=== PATIENT | male | born 1955 | race Caucasian/White ===

== ENCOUNTER 2017-07-11 08:14 | Emergency (ER) | payer OTHER ==
[2017-07-11] MEDS ORDERED: NA CHLORIDE 0.9% 1,000 ML ONE (09:11)
--- NOTE | 2017-07-11 09:18 | EKG ---
Test Date: 2017-07-11 Test Time: 09:06:19 Labor/Excavator: DIGNA MEASUREMENT RESULTS: Intervals: Rate: 119 TN: 158 QRSD: 72 QT: 316 QTc: 444 [place]: P: 87 TN: 158 QRS: 66 T: 77 INTERPRETIVE STATEMENTS: Sinus tachycardia Otherwise normal ECG Compared to ECG 05/04/2017 18:56:04 No significant changes Electronically Signed On 07-11-17 09:17:26 CDT by Herber Manriquez
[2017-07-11 09:40] LABS: Glucose Level 103 mg/dL (65-120); Lipase 24 U/L (22-51)
[2017-07-11 09:42] LABS: Bicarbonate 29 mEq/L (21-31); Sodium Level 131 mEq/L (135-145)
--- NOTE | 2017-07-11 09:43 | RAD REPORT ---
EXAM DESCRIPTION: CT - Stone Protocol - 07/11/2017 9:19 am CLINICAL HISTORY: Flank pain. Back pain. COMPARISON: 05/04/2017 TECHNIQUE: Axial images were obtained without oral or IV contrast. Lack of contrast limits solid org an and vascular assessment. The [id number]-[id number] spans the entirety of the system partially obscuring uppermost abdomen and lung bases. Coronal reformatted images were obtained and reviewed. All CT scans are performed using dose optimization technique as appropriate and may include automated exposure control or mA/KV adjustment according to patient size. FINDINGS: The lower lung ontiveros are clear. Small hiatal hernia. Imaged portions of the liver and spleen show no suspicious findings on non-contrast imaging.Fatty danial er infiltration again noted. The pancreas and adrenal glands are normal. No pathologic lymphadenopath y in the abdomen or pelvis. No urinary tract stones or obstructive uropathy. Incomplete distention of the urinary bladder limits assessment. No bowel obstruction, free air, free fluid or abscess. Normal appendix noted. No significant bony abnormality. Mild dextroscoliosis of the lumbar spine. IMPRESSION: No urinary tract stones or obstructive uropathy. Fatty liver.
[2017-07-11 09:46] LABS: ALT/SGPT 22 IU/L (10-60); AST/SGOT 43 IU/L (10-42); Alkaline Phosphatase 81 IU/L (42-121); BUN Blood Urea Nitrogen 35 mg/dL (6-20); Bilirubin Direct 0.4 mg/dL (0-0.2); Bilirubin Total 1.8 mg/dL (0.3-1.2); Protein, Total 8.1 g/dL (6.0-8.3)
[2017-07-11 09:49] LABS: CKMB Creatine Kinase MB 5.5 ng/ml (0.3-4.0)
[2017-07-11 09:50] LABS: Alcohol Serum/Plasma < 10 mg/dl
[2017-07-11 09:51] LABS: Potassium 2.8 mEq/L (3.6-5.0)
[2017-07-11 09:54] LABS: Absolute Lymphocytes (CBC) 0.5 K/uL (0.7-4.9); Absolute Monocytes 1.5 K/uL (0.1-1.3); Absolute Neutrophil 4.7 K/uL (1.8-8.0); Basophils % 0.2 % (0-1.3); Eosinophils % 0.2 % (0-4.4); Hematocrit 39.5 % (39.6-49.0); Lymphocytes % 7.4 % (15.3-44.8); MCH 36.4 pg (27.0-35.0); MPV 8.6 fL (7.6-11.3); Monocytes % 22.7 % (3.3-12.3); RBC Red Blood Cell Count 3.76 M/uL (4.33-5.43)
[2017-07-11] MEDS ORDERED: POTASSIUM CL SA 10 MEQ TAB PO ONE (10:28)
[2017-07-11] MEDS ORDERED: HYDROCODONE/APAP 7.5/325 MG TAB ONE (10:29)
[2017-07-11] MEDS ORDERED: NS KCL 40MEQ 40 MEQ/1,000 ML BAG IV ONE (11:00)
[2017-07-11 11:04] LABS: Anisocytosis 1+; Blood Morphology Comment NOTED (NOT SEEN); Macrocytosis 1+; Platelet Estimate DECR; Urine White Blood Cell Casts OK
--- NOTE | 2017-07-11 12:13 | EDPHYS ---
Physician Documentation [facility] Name: Rigo Saxena Age: 62 yrs Sex: Male : 1955 Arrival Date: 07/11/2017 Time: 08:15 Bed 15 Private MD: ED Physician Malcolm Alejandro HPI: 07/11 08:57 This 62 yrs old Male presents to ER via EMS with complaints of Back Pain. kb 08:57 The patient presents with pain that is acute, with no known mechanism of injury, and kb tenderness. The symptoms are located in the low back. Onset: The symptoms/episode began/occurred 2 week(s) ago. The pain does not radiate. Associated signs and symptoms: The patient has no apparent associated signs or symptoms. The problem was sustained without known cause. Modifying factors: The patient symptoms are alleviated by nothing, the patient symptoms are aggravated by any movement. Severity of symptoms: At their worst the symptoms were moderate, in the emergency department the symptoms are unchanged. The patient has not experienced similar symptoms in the past. Pt states he started having low back pain 2 weeks ago and he hasn't been able to walk well due to pain. States "I have a bunch of other problems too. I have kidney failure and cirrhosis. The doctors have told me I drink too much. I do drink quite a bit.". Historical: - Allergies: 08:19 No Known Allergies; jl7 - PMHx: 08:19 cholecysitis; Cirrhosis; jl7 - Immunization history:: Adult Immunizations not up to date. - Social history:: Smoking status: Patient/guardian denies using tobacco, but has a distant history of tobacco abuse, Patient uses alcohol, on a daily basis. "2 glasses of 7 \\T\\ 7 per day.". ROS: 08:55 Constitutional: Negative for fever, chills, and weight loss, ENT: Negative for injury, kb pain, and discharge, Neck: Negative for injury, pain, and swelling, Cardiovascular: Negative for chest pain, palpitations, and edema, Respiratory: Negative for shortness of breath, cough, wheezing, and pleuritic chest pain, : Negative for injury, bleeding, discharge, and swelling, MS/Extremity: Negative for injury and deformity, Skin: Negative for injury, rash, and discoloration, Neuro: Negative for headache, weakness, numbness, tingling, and seizure. 08:55 Abdomen/GI: Positive for abdominal distension. 08:55 Back: Positive for pain at rest, pain with movement, of the low back area. Exam: 08:55 Constitutional: This is a well developed, well nourished patient who is awake, alert, kb and in no acute distress. Head/Face: Normocephalic, atraumatic. Neck: Trachea midline, no thyromegaly or masses palpated, and no cervical lymphadenopathy. Supple, full range of motion without nuchal rigidity, or vertebral point tenderness. No Meningismus. Chest/axilla: Normal chest wall appearance and motion. Nontender with no deformity. No lesions are appreciated. Cardiovascular: Regular rate and rhythm with a normal S1 and S2. No gallops, murmurs, or rubs. Normal PMI, no JVD. No pulse deficits. Respiratory: Lungs have equal breath sounds bilaterally, clear to auscultation and percussion. No rales, rhonchi or wheezes noted. No increased work of breathing, no retractions or nasal flaring. Skin: Warm, dry with normal turgor. Normal color with no rashes, no lesions, and no evidence of cellulitis. MS/ Extremity: Pulses equal, no cyanosis. Neurovascular intact. Full, normal range of motion. Neuro: Awake and alert, GCS 15, oriented to person, place, time, and situation. Cranial nerves II-XII grossly intact. Motor strength 5/5 in all extremities. Sensory grossly intact. Cerebellar exam normal. Normal gait. 08:55 Abdomen/GI: Inspection: distension, that is mild, that is moderate, in the abdomen diffusely, Bowel sounds: normal, in all quadrants, Palpation: nontender, in all quadrants. 08:55 Back: pain, that is moderate, that is severe, of the low back area, ROM is painful, with all movement. Vital Signs: 08:19 BP 132 / 99; Pulse 125; Resp 18 S; Temp 99.9(O); Pulse Ox 98% on R/A; Weight 75.75 kg jl7 (R); Height 5 ft. 10 in. (177.80 cm) (R); Pain 10/10; 09:17 BP 145 / 99; Pulse 123; Resp 16 S; Pulse Ox 98% on R/A; jl7 10:59 BP 161 / 94; Pulse 109; Resp 18; Pulse Ox 100% on R/A; 5 12:00 BP 154 / 108; Pulse 119; Resp 18; Pulse Ox 98% on R/A; jl7 12:50 BP 140 / 92; Pulse 105; Resp 16 S; Pulse Ox 100% on R/A; jl7 14:00 BP 161 / 93; Pulse 101; Resp 16 S; Pulse Ox 98% on R/A; 7 08:19 Body Mass Index 23.96 (75.75 kg, 177.80 cm) 7 MDM: 08:25 Patient medically screened. kb 08:57 Data reviewed: vital signs, nurses notes. Data interpreted: Pulse oximetry: on room air kb is 98 %. Interpretation: normal. 11:05 Counseling: I had a detailed discussion with the patient and/or guardian regarding: the kb historical points, exam findings, and any diagnostic results supporting the discharge/admit diagnosis, lab results, radiology results, the need for outpatient follow up, a family practitioner, to return to the emergency department if symptoms worsen or persist or if there are any questions or concerns that arise at home. 14:28 ED course: Pt has caregiver that takes care of him at home. Will return for worsening kb symptoms. . 07/11 08:41 Order name: Basic Metabolic Panel; Complete Time: 09:53 kb 07/11 08:41 Order name: CBC with Diff; Complete Time: 11:05 kb 07/11 08:41 Order name: Hepatic Function; Complete Time: 09:53 kb 07/11 08:41 Order name: Lipase; Complete Time: 09:53 kb 07/11 08:41 Order name: AMMONIA; Complete Time: 09:45 kb 07/11 08:41 Order name: ETOH Level; Complete Time: 09:53 kb 07/11 08:46 Order name: Ckmb; Complete Time: 09:50 kb 07/11 08:46 Order name: Creatine Phosphokinase; Complete Time: 09:50 kb 07/11 08:46 Order name: Troponin (emerg Dept Use Only); Complete Time: 09:46 kb 07/11 08:46 Order name: CT Stone Protocol; Complete Time: 09:45 kb 07/11 09:57 Order name: CBC Smear Scan; Complete Time: 11:05 EDMS 07/11 08:41 Order name: IV Saline Lock; Complete Time: 09:11 kb 07/11 08:41 Order name: Labs collected and sent; Complete Time: 09:11 kb 07/11 08:46 Order name: EKG - Nurse/Tech; Complete Time: 09:10 kb 07/11 08:46 Order name: EKG; Complete Time: 08:47 kb Administered Medications: 09:23 Drug: NS 0.9% 1000 ml Route: IV; Rate: 1000 ml; Site: right antecubital; jl7 10:40 Drug: [place] (7.5 mg-325 mg) 1 tabs Route: PO; jl7 10:45 Drug: Potassium Chloride 40 mEq Route: PO; jl7 11:00 Drug: NS 0.9% with KCl 40 mEq/L 1000 ml Route: IV; Rate: calculated rate; Site: right jl7 antecubital; Disposition: 15:47 Co-signature as Attending Physician, Malcolm Alejandro MD I agree with the assessment and lamont plan of care. Disposition: 07/11/17 12:12 Discharged to Home. Impression: Low back pain, Hypokalemia. - Condition is Stable. - Discharge Instructions: Back Injury Prevention, Uwth-so-Lbyb, Back Pain, Adult, Vdgn-jz-Coda, Hypokalemia. - Prescriptions for Tramadol 50 mg Oral Tablet - take 1 tablet by ORAL route every 8 hours as needed; 12 tablet. - Medication Reconciliation Form, Thank You Letter, Antibiotic Education, Prescription Opioid Use form. - Follow up: Emergency Department; When: As needed; Reason: Worsening of condition. Follow up: Private Physician; When: 2 - 3 days; Reason: Recheck today's complaints, Continuance of care, Re-evaluation by your physician. Signatures: Dispatcher [employer] [facility] Crystal Burgess, YARN SPINNER-C YARN SPINNER-Malcolm Black MD MD cha Leal, Jahala, RN RN jl7 Corrections: (The following items were deleted from the chart) 09:16 08:41 Spine Lumbar Wo Con+CT.RAD.BRZ ordered. [facility] 14:28 08:57 Pt states he started having low back pain 2 weeks ago and he hasn't been able to kb walk due to pain. States "I have a bunch of other problems too. I have kidney failure and cirrhosis. The doctors have told me I drink too much. I do drink quite a bit.". kb
--- NOTE | 2017-07-11 12:13 | ER ---
Nurse's Notes [facility] Name: Rigo Saxena Age: 62 yrs Sex: Male : 1955 Arrival Date: 07/11/2017 Time: 08:15 Bed 15 Private MD: Diagnosis: Low back pain;Hypokalemia Presentation: 07/11 08:15 Presenting complaint: EMS states: Pt c/o back pain x 1 month. The public health program manager reported jl7 abdominal pain x 3 months, reports the doctor stated "the pt's gallbladder or kidney is pushing up against his spine.". Transition of care: patient was not received from another setting of care. Onset of symptoms was June 10, 2017. Care prior to arrival: None. 08:15 Method Of Arrival: EMS: [facility] jl 08:15 Acuity: KEERTHI 3 jl7 Historical: - Allergies: 08:19 No Known Allergies; jl7 - PMHx: 08:19 cholecysitis; Cirrhosis; jl7 - Immunization history:: Adult Immunizations not up to date. - Social history:: Smoking status: Patient/guardian denies using tobacco, but has a distant history of tobacco abuse, Patient uses alcohol, on a daily basis. "2 glasses of 7 \\T\\ 7 per day.". Screenin:20 Abuse screen: Denies threats or abuse. Denies injuries from another. Nutritional jl7 screening: No deficits noted. Tuberculosis screening: No symptoms or risk factors identified. Fall Risk No fall in past 12 months (0 pts). Secondary diagnosis (15 points) impaired mobility, IV access (20 points). Ambulatory Aid- None/Bed Rest/Nurse Assist (0 pts). Gait- Impaired (20 pts.). Mental Status- Overestimates/Forgets Limitations (15 pts.). Total Nieves Fall Scale indicates High Risk Score (45 or more points). Fall prevention measures have been instituted. Side Rails Up X 2 Placed Close to Nursing Station Frequent Obs/Assessments Occuring As available patient and family educated on Fall Prevention Program and Strategies. Assessment: 08:20 General: Appears in no apparent distress. uncomfortable, Behavior is cooperative. Pain: jl7 Complains of pain in low back area and mid back area Pain does not radiate. Pain currently is 10 out of 10 on a pain scale. Quality of pain is described as aching, Pain began 1 month ago Is continuous. Neuro: Level of Consciousness is awake, alert, obeys commands, Oriented to person, place, time, situation. Cardiovascular: Denies chest pain, Heart tones S1 S2 present. Respiratory: Airway is patent Respiratory effort is even, unlabored, Respiratory pattern is regular, symmetrical, Breath sounds are clear bilaterally. Denies shortness of breath. GI: Abdomen is round distended, Last BM was July 10, 2017. Bowel sounds present X 4 quads. Abd is non tender X 4 quads. : No signs and/or symptoms were reported regarding the genitourinary system. EENT: No signs and/or symptoms were reported regarding the EENT system. Derm: Skin is pink, warm \\T\\ dry. Musculoskeletal: Reports pain in low back area and mid back area. 09:17 Reassessment: Pt remains A\\T\\O x 4 with intermittent confusion. jl7 10:45 Reassessment: Caregiver at bedside requesting to talk to provider. Provider notified jl7 and at bedside. 11:00 Reassessment: Caregiver requesting to be notified once pt is ready for discharge. jl7 Shaila Fair [phone], medical power of salon leader. 12:40 Reassessment: Pt ready for discharge, caregiver Shaila did not answer phone, message jl7 left. 13:03 Reassessment: Caregiver answered the phone and stated "It'll be 40 minutes before I can jl7 be there.". Vital Signs: 08:19 BP 132 / 99; Pulse 125; Resp 18 S; Temp 99.9(O); Pulse Ox 98% on R/A; Weight 75.75 kg jl7 (R); Height 5 ft. 10 in. (177.80 cm) (R); Pain 10/10; 09:17 BP 145 / 99; Pulse 123; Resp 16 S; Pulse Ox 98% on R/A; jl7 10:59 BP 161 / 94; Pulse 109; Resp 18; Pulse Ox 100% on R/A; mh5 12:00 BP 154 / 108; Pulse 119; Resp 18; Pulse Ox 98% on R/A; jl7 12:50 BP 140 / 92; Pulse 105; Resp 16 S; Pulse Ox 100% on R/A; jl7 14:00 BP 161 / 93; Pulse 101; Resp 16 S; Pulse Ox 98% on R/A; jl7 08:19 Body Mass Index 23.96 (75.75 kg, 177.80 cm) jl7 ED Course: 08:15 Patient arrived in ED. jl7 08:18 Triage completed. jl7 08:22 Arm band placed on right wrist. jl7 08:23 Bed in low position. Side rails up X2. Warm blanket given. bus driver/monitor on. Pulse ox mh5 on. NIBP on. 08:24 Inserted saline lock: 20 gauge in right antecubital area, using aseptic technique. em Blood collected. 08:25 Crystal Burgess FNP-C is PHCP. kb 08:25 Malcolm Alejandro MD is Attending Physician. kb 08:30 Aroldo Vázquez RN is Primary Nurse. jl7 09:00 Initial lab(s) drawn, by ED staff, sent to lab. jl7 09:14 EKG done, by hvac residential service technician. reviewed by Crystal SHEARER. tc 09:16 CT completed. Patient tolerated procedure well. Patient moved to CT via stretcher. sj Patient moved back from CT. 09:19 CT Stone Protocol In Process Unspecified. EDMS 14:34 No provider procedures requiring assistance completed. IV discontinued, intact, jl7 bleeding controlled, No redness/swelling at site. Pressure dressing applied. Administered Medications: 09:23 Drug: NS 0.9% 1000 ml Route: IV; Rate: 1000 ml; Site: right antecubital; jl7 10:40 Drug: [place] (7.5 mg-325 mg) 1 tabs Route: PO; jl7 10:45 Drug: Potassium Chloride 40 mEq Route: PO; jl7 11:00 Drug: NS 0.9% with KCl 40 mEq/L 1000 ml Route: IV; Rate: calculated rate; Site: right jl7 antecubital; Outcome: 12:12 Discharge ordered by . kb 14:34 Discharged to home ambulatory. jl7 14:34 Condition: stable 14:34 Discharge instructions given to patient, family, Instructed on discharge instructions, follow up and referral plans. medication usage, Demonstrated understanding of instructions, follow-up care, medications, Prescriptions given X 1. 14:35 Patient left the ED. jl7 Signatures: Dispatcher [employer] EDMS Crystal Burgess FNP-C FNP-Rebecca See Edgar, POINTING MACHINE OPERATOR POINTING MACHINE OPERATOR em Katelyn Roblero, award machine operator EKG [facility] Aroldo Vázquez, RN RN jl7 Corrections: (The following items were deleted from the chart) 12:40 09:17 Reassessment: Pt remain A\\T\\O x 4 with intermittent confusion. jl7 jl7
[2017-07-11 14:42] VITALS: TEMP 99.9
[2017-07-11 14:48] VITALS: BP 161/93; O2SAT 98
== END 2017-07-11 14:35 | disposition home or self-care (01) ==
LOC: ER 08:14
DX: E87.6 Hypokalemia (principal); K74.60 Unspecified cirrhosis of liver
CPT/HCPCS: 36415; 74176; 76377; 80048; 80076; 80320; 82140; 82550; 82553; 83690; 84484; 85025; 93005; 99285; J7030

== ENCOUNTER 2017-08-01 07:21 | Inpatient (IN) | payer OTHER ==
[2017-08-01] MEDS ORDERED: NA CHLORIDE 0.9% 500 ML ONE (08:24)
[2017-08-01 08:48] LABS: Absolute Lymphocytes (CBC) 1.3 K/uL (0.7-4.9); Absolute Monocytes 1.2 K/uL (0.1-1.3); Basophils % 0.3 % (0-1.3); Eosinophils % 0.1 % (0-4.4); Hematocrit 38.8 % (39.6-49.0); Lymphocytes % 9.3 % (15.3-44.8); MCH 35.6 pg (27.0-35.0); MCV 100.3 fL (80-100); MPV 7.6 fL (7.6-11.3); Monocytes % 9.1 % (3.3-12.3); RBC Red Blood Cell Count 3.87 M/uL (4.33-5.43)
[2017-08-01 08:59] LABS: Bicarbonate 26 mEq/L (21-31); Glucose Level 152 mg/dL (65-120); Lipase 18 U/L (22-51); Potassium 3.3 mEq/L (3.6-5.0); Sodium Level 132 mEq/L (135-145)
[2017-08-01] MEDS ORDERED: FOLIC ACID 1 MG, MULTIVITAMINS INJ 10 ML, THIAMINE HCL 100 MG in NA CHLORIDE 0.9% 1,000 ML IV ONE (09:00)
[2017-08-01] MEDS ORDERED: FAMOTIDINE 20 MG/2 ML VIAL IV ONE (09:03)
[2017-08-01 09:05] LABS: ALT/SGPT 10 IU/L (10-60); AST/SGOT 26 IU/L (10-42); Albumin 3.3 g/dL (3.2-5.5); Alkaline Phosphatase 100 IU/L (42-121); BUN Blood Urea Nitrogen 13 mg/dL (6-20); Bilirubin Direct 0.6 mg/dL (0-0.2); Bilirubin Total 3.3 mg/dL (0.3-1.2)
[2017-08-01 09:09] LABS: Alcohol Serum/Plasma < 10 mg/dl
--- NOTE | 2017-08-01 09:52 | RAD REPORT ---
EXAM DESCRIPTION: CT - Abdomen Pelvis W Contrast - 08/01/2017 9:40 am CLINICAL HISTORY: Upper abdominal pain COMPARISON: CT study July 11, ultrasound May 05 TECHNIQUE: Biphasic, helical CT imaging of the abdomen and pelvis was performed following 100 ml non -ionic IV contrast. Oral contrast was given. All CT scans are performed using dose optimization technique as appropriate and may include automated exposure control or mA/KV adjustment according to patient size. FINDINGS: Minimal left pleural effusion seen with atelectasis. No pericardial thickening or effusion . The liver, spleen, and pancreas show no suspicious findings. Gallbladder is abnormal. Gallstones are suspected. Wall appears slightly thickened or edematous. No biliary tree dilatation. Patient has prev iously shown findings of cholecystitis. Correlation is needed with any acute gallbladder symptoms. Symmetric renal function is seen with no hydronephrosis or suspicious renal mass. No pyelonephritis o r acute renal parenchymal process. Urinary bladder is 2 contracted to allow all accurate assessment. Prostate gland and seminal vesicles within normal limits. No dilated bowel loops or bowel wall thickening. No free air, free fluid or inflammatory stranding. No hernia, mass or bulky lymphadenopathy. No adrenal abnormality. No suspicious bony findings. IMPRESSION: Gallstones are suspected and wall of gallbladder is slightly thickened and edematous. Bi liary tree is not dilated. Findings are concerning for early acute gallbladder disease. Patient has previously shown findings co nsistent with cholecystitis. Correlation is needed with clinical presentation. Minimal left pleural effusion with atelectasis. Remainder of the examination shows no significant finding.
[2017-08-01] MEDS ORDERED: ONDANSETRON 4 MG/2 ML VIAL IV PRN (13:22)
[2017-08-01] MEDS ORDERED: LORazepam 2 MG/ML VIAL IV PRN (13:28)
[2017-08-01 13:45] LABS: Urine Bacteria 20-50 /HPF (NONE SEEN); Urine Culture Reflex Order REFLEXED; Urine Mucus 2+ /HPF (NONE SEEN)
[2017-08-01 13:52] LABS: Protime INR 1.37
[2017-08-01] MEDS ORDERED: NA CHLORIDE 0.9% 1,000 ML IV SCH (14:00)
[2017-08-01] MEDS: CIPROFLOXACIN 400mg IV 400 MG/200 ML BAG IV SCH (14:00)
[2017-08-01 14:11] LABS: Urine Blood TRACE (NEG); Urine Glucose NEGATIVE (NEG); Urine Protein 1+ (NEG)
--- NOTE | 2017-08-01 14:13 | ER ---
Nurse's Notes [facility] Name: Rigo Saxena Age: 62 yrs Sex: Male : 1955 Arrival Date: 08/01/2017 Time: 07:27 Bed 15 Private MD: Diagnosis: Acute cholecystitis Presentation: 08/01 07:27 Presenting complaint: EMS states: called out for upper quad. pain, reports was told to em follow up and have gallbladder removed, reports N/V. EMS BP 155/108, HR 128, SPO2 96% RA. Transition of care: patient was not received from another setting of care. Onset of symptoms was August 01, 2017. Initial Sepsis Screen: Does the patient meet any 2 criteria? No. Patient's initial sepsis screen is negative. Does the patient have a suspected source of infection? No. Patient's initial sepsis screen is negative. 07:27 Method Of Arrival: EMS: [facility] em 07:30 Acuity: KEERTHI 3 iw 07:33 Care prior to arrival: None. em Triage Assessment: 07:33 General: Appears in no apparent distress. uncomfortable, Behavior is calm, cooperative, em appropriate for age. Pain: Complains of pain in abdomen. Historical: - Allergies: 07:31 No Known Allergies; em - Home Meds: 07:31 aspirin 81 mg Oral TbEC 1 tab once daily [Active]; "2 unknown antibiotics" [Active]; em cyanocobalamin (vitamin B-12) 1,000 mcg Oral TbER daily [Active]; magnesium oxide 400 mg Oral tab twice a day [Active]; pantoprazole 40 mg Oral TbEC 1 tab once daily [Active]; docusate sodium 100 mg Oral cap 1 cap 2 times per day [Active]; thiamine HCl (vitamin B1) 100 mg Oral tab daily [Active]; - PMHx: 07:31 ACL REPAIR; Acute encephalopathy; CAD; Cirrhosis; cholecysitis; ETOH WITHDRAWL; CVA; em kidney failure; rhabdomylosis; - Immunization history:: Adult Immunizations not up to date. - Social history:: Smoking status: Patient uses tobacco products, smokes one-half pack cigarettes per day. Screenin:34 Abuse screen: Denies threats or abuse. Nutritional screening: No deficits noted. em Tuberculosis screening: No symptoms or risk factors identified. Fall Risk Secondary diagnosis (15 points) impaired mobility, Ambulatory Aid- None/Bed Rest/Nurse Assist (0 pts). Gait- Impaired (20 pts.). Total Nieves Fall Scale indicates High Risk Score (45 or more points). Side Rails Up X 2 Placed Close to Nursing Station. Assessment: 07:42 General: Appears in no apparent distress. uncomfortable, Behavior is calm, cooperative, hj appropriate for age. Pain: Complains of pain in epigastric area and right upper quadrant Pain currently is 10 out of 10 on a pain scale. Neuro: Level of Consciousness is awake, alert, obeys commands, Oriented to person, place, time, situation, Appropriate for age. Cardiovascular: Capillary refill < 3 seconds Patient's skin is warm and dry. Rhythm is sinus tachycardia. Respiratory: Airway is patent Respiratory effort is even, unlabored, Respiratory pattern is regular, symmetrical. GI: Reports upper abdominal pain. : No signs and/or symptoms were reported regarding the genitourinary system. EENT: No signs and/or symptoms were reported regarding the EENT system. Derm: No signs and/or symptoms reported regarding the dermatologic system. Musculoskeletal: No signs and/or symptoms reported regarding the musculoskeletal system. 08:48 Reassessment: Patient and/or family updated on plan of care and expected duration. Pain hj level reassessed. Patient is alert, oriented x 3, equal unlabored respirations, skin warm/dry/pink. awaiting results and POC;. 12:00 Reassessment: instructed me to update pt on POC and need for transfer to another facility for GI d/t being a high risk surgery, attempt to transfer to [facility] per pt request. awaiting acceptance to facility at this time, pt updated, pt stated understanding. 15:25 Reassessment: Patient appears in no apparent distress at this time. pt updated on attempt to call report, nurse unavailable, awaiting a call back, pt stated understanding, will continue to monitor, awaiting a call back at this time Patient states symptoms have not improved. Vital Signs: 07:31 BP 146 / 91; Pulse 129; Resp 22; Temp 98.3(O); Pulse Ox 98% on R/A; Weight 74.84 kg; em Height 5 ft. 10 in. (177.80 cm); Pain 10/10; 08:58 BP 143 / 79; Pulse 120; Resp 18; Pulse Ox 95% on R/A; hj 12:03 BP 155 / 97; Pulse 126 MON; Resp 22 S; Pulse Ox 95% on R/A; sg 14:00 BP 131 / 94; Pulse 119 MON; Resp 20 S; Pulse Ox 96% on R/A; Pain 10/10; sg 15:21 BP 123 / 83; Pulse 117 MON; Resp 20 S; Pulse Ox 98% on R/A; Pain 10/10; sg 07:31 Body Mass Index 23.67 (74.84 kg, 177.80 cm) em Wilmer Coma Score: 12:03 Eye Response: spontaneous(4). Verbal Response: oriented(5). Motor Response: obeys sg commands(6). Total: 15. ED Course: 07:27 Patient arrived in ED. em 07:30 Triage completed. iw 07:33 Arm band placed on. em 07:34 Patient has correct armband on for positive identification. Placed in gown. Bed in low em position. Call light in reach. Side rails up X2. 07:34 No provider procedures requiring assistance completed. em 07:35 Chele Benjamin, DK is Primary Nurse. hj 07:54 Carlos Figueroa MD is Attending Physician. kdr 08:30 Initial lab(s) drawn, by ma, sent to lab. Inserted saline lock: 20 gauge in right hj antecubital area, using aseptic technique. Blood collected. 09:[address] via stretcher. vm2 09:40 CT completed. Patient moved back from CT. vm2 09:41 CT Abd/Pelvis - W/Contrast In Process Unspecified. EDMS 10:03 Primary Nurse role handed off by Chele Benjamin, DK sg 10:03 Yordan Mc, DK is Primary Nurse. sg 12:13 \\[id number] initiated transfer to [facility] with Sherry wire transfer clerk. eb 13:34 by ma, sent to lab. Inserted saline lock: 20 gauge in left antecubital area, using iw aseptic technique. Blood collected. 14:07 Rosi Caicedo MD is Hospitalizing Provider. kdr 16:00 Patient admitted, IV remains in place. intact, No redness/swelling at site. sg Administered Medications: 08:12 Drug: NS 0.9% 500 ml Route: IV; Rate: bolus; Site: right antecubital; hj 08:57 Drug: Banana Bag - (NS 0.9% 1000 ml, foLIC Acid 1 mg, Thiamine 100 mg, Multivitamin 1 hj amp) Route: IV; Rate: calculated rate; Site: right antecubital; 09:05 Drug: Pepcid 20 mg Route: IVP; Site: right antecubital; 09:06 Follow up: Response: No adverse reaction Outcome: 14:12 Decision to Hospitalize by Provider. kdr 16:00 Admitted to Tele accompanied by tech, via stretcher, room 218, with chart, Report sg called to Emeterio ROOT 16:00 Condition: stable 16:00 Instructed on the need for admit, safety practices, Demonstrated understanding of instructions, follow-up care. 16:17 Patient left the ED. sg Signatures: Dispatcher [employer] Yordan Glass, RN Carlos Rodríguez MD MD kdr Munoz, Edgar, MODEL TECHNICIAN MODEL TECHNICIAN Anna Sagastume RN RN Chele Benjamin RN RN Kathy Powell [facility] Marii Barrios
--- NOTE | 2017-08-01 14:13 | EDPHYS ---
Physician Documentation [facility] Name: Rigo Saxena Age: 62 yrs Sex: Male : 1955 Arrival Date: 08/01/2017 Time: : Bed 15 Private MD: ED Physician Carlos Figueroa HPI: 08/01 09:07 This 62 yrs old Male presents to ER via EMS with complaints of Abdominal Pain kdr \\T\\ weakness. 09:07 The patient presents with abdominal pain in the epigastric area, in the upper abdomen. kdr Onset: The symptoms/episode began/occurred at an unknown time. The symptoms do not radiate. Associated signs and symptoms: Pertinent positives: nausea, vomiting, and diarrhea, Pertinent negatives: constipation, dysuria, fever, palpitations, shortness of breath, testicular pain, vomiting, vomiting blood. The symptoms are described as achy, burning, crampy, intermittent, vague, waxing/waning. Modifying factors: The symptoms are alleviated by nothing, the symptoms are aggravated by touching the area. Severity of pain: At its worst the pain was mild moderate just prior to arrival, in the emergency department the pain is unchanged. The patient has experienced similar episodes in the past, a few times. The patient has not recently seen a physician, The patient was here several weeks ago for weakness (unable to walk) and abdominal pain. Historical: - Allergies: : No Known Allergies; em - Home Meds: aspirin 81 mg Oral TbEC 1 tab once daily [Active]; "2 unknown antibiotics" [Active]; em cyanocobalamin (vitamin B-12) 1,000 mcg Oral TbER daily [Active]; magnesium oxide 400 mg Oral tab twice a day [Active]; pantoprazole 40 mg Oral TbEC 1 tab once daily [Active]; docusate sodium 100 mg Oral cap 1 cap 2 times per day [Active]; thiamine HCl (vitamin B1) 100 mg Oral tab daily [Active]; - PMHx: : ACL REPAIR; Acute encephalopathy; CAD; Cirrhosis; cholecysitis; ETOH WITHDRAWL; CVA; em kidney failure; rhabdomylosis; - Immunization history:: Adult Immunizations not up to date. - Social history:: Smoking status: Patient uses tobacco products, smokes one-half pack cigarettes per day. ROS: 09:07 Constitutional: Negative for fever, chills, and weight loss - generalized weakness kdr Eyes: Negative for injury, pain, redness, and discharge, ENT: Negative for injury, pain, and discharge, Neck: Negative for injury, pain, and swelling, Cardiovascular: Negative for chest pain, palpitations, and edema, Respiratory: Negative for shortness of breath, cough, wheezing, and pleuritic chest pain, Back: Negative for injury and pain, : Negative for injury, bleeding, discharge, and swelling, MS/Extremity: Negative for injury and deformity, Skin: Negative for injury, rash, and discoloration, Neuro: Negative for headache, weakness, numbness, tingling, and seizure activity. Psych: Negative for depression, anxiety, suicide ideation, homicidal ideation, and hallucinations, Allergy/Immunology: Negative for hives, rash, and allergies, Endocrine: Negative for neck swelling, polydipsia, polyuria, polyphagia, and marked weight changes, Hematologic/Lymphatic: Negative for swollen nodes, abnormal bleeding, and unusual bruising. 09:07 Abdomen/GI: Positive for abdominal pain, nausea, vomiting, and diarrhea, abdominal distension, Negative for rectal bleeding, bowel incontinence. Exam: 09:07 Constitutional: This is a well developed, well nourished patient who is awake, alert, kdr and in no acute distress. Head/Face: Normocephalic, atraumatic. Eyes: Pupils equal round and reactive to light, extra-ocular motions intact. Lids and lashes normal. Conjunctiva and sclera are non-icteric and not injected. Cornea within normal limits. Periorbital areas with no swelling, redness, or edema. Neck: Trachea midline, no thyromegaly or masses palpated, and no cervical lymphadenopathy. Supple, full range of motion without nuchal rigidity, or vertebral point tenderness. No Meningismus. Chest/axilla: Normal chest wall appearance and motion. Nontender with no deformity. No lesions are appreciated. Cardiovascular: Regular rate and rhythm with a normal S1 and S2. No gallops, murmurs, or rubs. Normal PMI, no JVD. No pulse deficits. Respiratory: Lungs have equal breath sounds bilaterally, clear to auscultation and percussion. No rales, rhonchi or wheezes noted. No increased work of breathing, no retractions or nasal flaring. Back: No spinal tenderness. No costovertebral tenderness. Full range of motion. Skin: Warm, dry with normal turgor. Normal color with no rashes, no lesions, and no evidence of cellulitis. MS/ Extremity: Pulses equal, no cyanosis. Neurovascular intact. Full, normal range of motion. Neuro: Awake and alert, GCS 15, oriented to person, place, time, and situation. Cranial nerves II-XII grossly intact. Motor strength 5/5 in all extremities. Sensory grossly intact. Cerebellar exam normal. Normal gait. Psych: Awake, alert, with orientation to person, place and time. Behavior, mood, and affect are within normal limits. 09:07 Abdomen/GI: Inspection: abdomen appears normal, Bowel sounds: active, all quadrants, Palpation: soft, mild abdominal tenderness, in the epigastric area. Vital Signs: 07:31 BP 146 / 91; Pulse 129; Resp 22; Temp 98.3(O); Pulse Ox 98% on R/A; Weight 74.84 kg; em Height 5 ft. 10 in. (177.80 cm); Pain 10/10; 08:58 BP 143 / 79; Pulse 120; Resp 18; Pulse Ox 95% on R/A; hj 12:03 BP 155 / 97; Pulse 126 MON; Resp 22 S; Pulse Ox 95% on R/A; sg 14:00 BP 131 / 94; Pulse 119 MON; Resp 20 S; Pulse Ox 96% on R/A; Pain 10/10; sg 15:21 BP 123 / 83; Pulse 117 MON; Resp 20 S; Pulse Ox 98% on R/A; Pain 10/10; sg 07:31 Body Mass Index 23.67 (74.84 kg, 177.80 cm) em Lyndsay Coma Score: 12:03 Eye Response: spontaneous(4). Verbal Response: oriented(5). Motor Response: obeys sg commands(6). Total: 15. MDM: 09:07 Data reviewed: vital signs, nurses notes, lab test result(s), radiologic studies. kdr Counseling: I had a detailed discussion with the patient and/or guardian regarding: the historical points, exam findings, and any diagnostic results supporting the discharge/admit diagnosis, lab results, radiology results. 14:12 Patient medically screened. kdr 08/01 08:12 Order name: Basic Metabolic Panel; Complete Time: 09:56 kdr 08/01 08:12 Order name: CBC with Diff; Complete Time: 09:07 [facility] 08/01 08:12 Order name: Creatinine for Radiology; Complete Time: 10:28 [facility] 08/01 08:12 Order name: Hepatic Function; Complete Time: 09:56 [facility] 08/01 08:12 Order name: Lipase; Complete Time: 09:56 [facility] 08/01 08:12 Order name: Urine Microscopic Only [facility] 08/01 08:12 Order name: ETOH Level; Complete Time: 09:56 [facility] 08/01 10:30 Order name: AMMONIA [facility] 08/01 12:50 Order name: PT-INR [facility] 08/01 12:50 Order name: Protime (+INR) [facility] 08/01 13:28 Order name: Urinalysis [facility] 08/01 13:46 Order name: Urine Culture [facility] 08/01 13:52 Order name: Urine Dipstick--Ancillary (enter results) 08/01 14:11 Order name: Urine Dipstick-Ancillary [facility] 08/01 08:12 Order name: IV Saline Lock; Complete Time: 08:35 [facility] 08/01 08:12 Order name: Labs collected and sent; Complete Time: 08:35 [facility] 08/01 08:12 Order name: CT Abd/Pelvis - W/Contrast; Complete Time: 09:56 [facility] 08/01 13:28 Order name: CONS Physician Consult [facility] 08/01 13:28 Order name: NPO [facility] Administered Medications: 08:12 Drug: NS 0.9% 500 ml Route: IV; Rate: bolus; Site: right antecubital; 08:57 Drug: Banana Bag - (NS 0.9% 1000 ml, foLIC Acid 1 mg, Thiamine 100 mg, Multivitamin 1 hj amp) Route: IV; Rate: calculated rate; Site: right antecubital; 09:05 Drug: Pepcid 20 mg Route: IVP; Site: right antecubital; 09:06 Follow up: Response: No adverse reaction Disposition: 08/01/17 14:12 Hospitalization ordered by Rosi Caicedo for Inpatient Admission. Preliminary diagnosis is Acute cholecystitis. - Bed requested for Telemetry/MedSurg (Inpatient). - Status is Inpatient Admission. sg - Condition is Fair. - Problem is new. - Symptoms have improved. UTI on Admission? No Signatures: Dispatcher [employer] Cleo John, RN RN Yordan Billings RN RN Carlos Parker MD MD kdr Munoz, Edgar, YOSI MCCLAINN Chele العراقي RN RN hj
[2017-08-01] MEDS: METRONIDAZOLE 500mg IVPB 500 MG/100 ML BAG IV SCH (16:45)
[2017-08-01] MEDS: chlordiazePOXIDE HCl 25 MG CAP PO SCH ×2 (17:13→23:37)
--- NOTE | 2017-08-01 17:35 | P.HP ---
Certification for Inpatient Patient admitted to: Inpatient With expected LOS: >2 Midnights Patient will require the following post-hospital care: None Practitioner: I am a practitioner with admitting privileges, knowledge of patient current condition, hospital course, and medical plan of care. Services: Services provided to patient in accordance with Admission requirements found in Title 42 Section 412.3 of the Code of Federal Regulations Patient History Date of Service: 08/01/17 Primary Care Provider: None Reason for admission: Abd Pain Allergies No Known Allergies Allergy (Unverified 04/24/17 14:27) Home Medications: Cyanocobalamin [Vitamin B-12*] 1,000 mcg PO DAILY #90 tab 04/30/17 Docusate [Colace Cap*] 100 mg PO BID #60 cap 04/30/17 Pantoprazole [Protonix Tab*] 40 mg PO DAILYAC #30 tab 04/30/17 Thiamine HCl [Vitamin B-1*] 100 mg PO DAILY #90 tablet 04/30/17 Aspirin [Aspirin EC 81 MG] 81 mg PO DAILY #90 tablet. 05/07/17 Magnesium Oxide [Mag 0X*] 400 mg PO BID #60 tab 05/07/17 - Past Medical/Surgical History Has patient received pneumonia vaccine in the past: No Diabetic: No -: ETOH abuse -: Rhabdomylosis -: acl to left knee 30yrs ago -: knee replacement - Family History Mother Notes: from blood clot in brain - Social History Smoking Status: Former smoker Alcohol use: Yes CD- Drugs: No Caffeine use: No Place of Residence: Home Review of Systems General: As per HPI Physical Examination - Vital Signs Temperature: 98.3 F Blood Pressure: 123/83 Pulse: 117 Respirations: 20 - Physical Exam General: Alert, In no apparent distress, Oriented x2, Confused HEENT: Atraumatic, Scleral icterus Neck: Supple Respiratory: Normal air movement, Crackles/rales Cardiovascular: Regular rate/rhythm, Normal S1 S2 Gastrointestinal: Normal bowel sounds, Soft and benign, Distended, Ascites, Tenderness (In the epigastric Area) Musculoskeletal: No tenderness Integumentary: No rashes Neurological: Normal speech, Normal strength at 5/5 x4 extr, Normal tone Lymphatics: No axilla or inguinal lymphadenopathy - Studies Laboratory Data (last 24 hrs) 08/01/17 13:25: PT 16.2 H, INR 1.37 08/01/17 08:30: Creatinine 0.97 08/01/17 08:30: WBC 13.6 H, Hgb 13.8, Hct 38.8 L, Plt Count 223 08/01/17 08:30: Sodium 132 L, Potassium 3.3 L, BUN 13, Creatinine 0.91, Glucose 152 H, Total Bilirubin 3.3 H, AST 26, ALT 10, Alkaline Phosphatase 100, Lipase 18 L Assessment and Plan - Problems (Diagnosis) (1) Cholecystitis Onset Date: 05/05/17 Current Visit: No Status: Acute Plan: Acute Cholecysititis on the Abd CT -General Surgery Consulted. Appreciate reccs. -IV fluids, NPO and IV cipro and flagyl -Surgery planned for blanche -Pt is high risk for surgery given his Liver cirrhosis and elevated Tbili. -Pt educated extensively about the risk and benefits. (2) Liver cirrhosis Current Visit: Yes Status: Acute Plan: Alcohol Liver Cirrhosis. Noncompliant with medication and alcohol abuse -CIWA protocol Qualifiers: Hepatic cirrhosis type: alcoholic cirrhosis Ascites presence: with ascites Qualified Code(s): K70.31 - Alcoholic cirrhosis of liver with ascites (3) Alcohol abuse Onset Date: 04/25/17 Current Visit: No Status: Chronic Plan: Alcohol abuse. Pt drinks 2 to 3 packs of 12 beer a day -Last drink last night. -CIWA protocol (4) Malnutrition Current Visit: No Status: Acute Qualifiers: Malnutrition type: protein-calorie malnutrition Protein-calorie malnutrition severity: moderate Qualified Code(s): E44.0 - Moderate protein- calorie malnutrition Discharge Plan: Home Plan to discharge in: 24 Hours - Advance Directives Does patient have a Living Will: No Does patient have a Durable POA for Healthcare: No - Code Status/Comfort Care Code Status Assessed: Yes Critical Care: No
[2017-08-01] MEDS: Morphine 2 MG/2 ML SYR IV PRN (18:52)
[2017-08-01] MEDS: KCL 20 MEQ/100 mL IVPB 20 MEQ/100 ML BAG IV SCH ×2 (20:08→22:08)
[2017-08-01] MEDS: DOCUSATE NA 100 MG CAP PO SCH (20:17)
[2017-08-02] MEDS: METRONIDAZOLE 500mg IVPB 500 MG/100 ML BAG IV SCH ×3 (00:25→16:26)
[2017-08-02] MEDS: Morphine 2 MG/2 ML SYR IV PRN ×5 (00:27→23:24)
[2017-08-02] MEDS: chlordiazePOXIDE HCl 25 MG CAP PO SCH ×4 (05:21→23:19)
[2017-08-02] MEDS: CIPROFLOXACIN 400mg IV 400 MG/200 ML BAG IV SCH ×2 (05:22→17:11)
[2017-08-02 06:19] LABS: Absolute Lymphocytes (CBC) 1.1 K/uL (0.7-4.9); Absolute Monocytes 0.9 K/uL (0.1-1.3); Absolute Neutrophil 7.4 K/uL (1.8-8.0); Basophils % 0.5 % (0-1.3); Eosinophils % 0.5 % (0-4.4); Hematocrit 33.7 % (39.6-49.0); Lymphocytes % 11.6 % (15.3-44.8); MCH 35.8 pg (27.0-35.0); MCV 101.5 fL (80-100); MPV 8.2 fL (7.6-11.3); Monocytes % 9.3 % (3.3-12.3); RBC Red Blood Cell Count 3.32 M/uL (4.33-5.43)
[2017-08-02 06:43] LABS: Albumin 2.9 g/dL (3.2-5.5); Bilirubin Total 2.3 mg/dL (0.3-1.2); Potassium 3.4 mEq/L (3.6-5.0); Protein, Total 6.8 g/dL (6.0-8.3)
[2017-08-02] MEDS: CYANOCOBALAMIN 1,000 MCG TAB PO SCH (08:20)
[2017-08-02] MEDS: DOCUSATE NA 100 MG CAP PO SCH ×2 (08:20→20:03)
[2017-08-02] MEDS: ASPIRIN EC 81 MG TAB PO SCH (08:20)
[2017-08-02] MEDS: KCL 20 MEQ/100 mL IVPB 20 MEQ/100 ML BAG IV SCH ×4 (08:24→23:19)
[2017-08-02] MEDS: PANTOPRAZOLE 40 MG INJ IVP SCH (08:25)
[2017-08-02] MEDS: SODIUM CHLORIDE 0.9% 10ML INJ IV SCH (08:25)
[2017-08-02] MEDS: FOLIC ACID 1 MG, MULTIVITAMINS INJ 10 ML, THIAMINE HCL 100 MG in NA CHLORIDE 0.9% 1,000 ML IV SCH (08:51)
--- NOTE | 2017-08-02 11:54 | P.PN ---
Subjective Date of Service: 08/02/17 Primary Care Provider: None Chief Complaint: Abd Pain Pt seen and examined at bedside with RN. Chart reviewed. Case D/W surgery. Plan is for Surgery blanche. Currently monitoring closely for DT's. Pt is AAOx1. But intermittent confusion. Review of Systems 10-point ROS is otherwise unremarkable Physical Examination - Vital Signs Temperature: 99.3 F Blood Pressure: 157/88 Pulse: 115 Respirations: 16 Pulse Ox (%): 93 - Physical Exam General: Alert, In no apparent distress, Oriented x1, Confused (Intermittent) HEENT: Atraumatic Neck: Supple Respiratory: Clear to auscultation bilaterally, Normal air movement Cardiovascular: Regular rate/rhythm, Normal S1 S2 Gastrointestinal: Normal bowel sounds, Soft and benign, Distended, Ascites, Tenderness (RUQ pain) Musculoskeletal: No tenderness Integumentary: No rashes Neurological: Normal speech, Normal tone, Normal affect Lymphatics: No axilla or inguinal lymphadenopathy - Studies Laboratory Data (last 24 hrs) 08/01/17 13:25: PT 16.2 H, INR 1.37 Medications List Reviewed: Yes Assessment & Plan - Problems (Diagnosis) (1) Cholecystitis Onset Date: 05/05/17 Current Visit: No Status: Acute Plan: Acute Cholecysititis on the Abd CT -General Surgery Consulted. Appreciate reccs. -IV fluids, NPO and IV cipro and flagyl -Surgery planned for blanche AM -Pt is high risk for surgery given his Liver cirrhosis and elevated Tbili. Spoke with POA. In agreement for surgery due to repeated symptoms. -Pt educated extensively as well about the risk and benefits. (2) Liver cirrhosis Current Visit: Yes Status: Acute Plan: Alcohol Liver Cirrhosis. Noncompliant with medication and alcohol abuse -CIWA protocol Qualifiers: Hepatic cirrhosis type: alcoholic cirrhosis Ascites presence: with ascites Qualified Code(s): K70.31 - Alcoholic cirrhosis of liver with ascites (3) Alcohol abuse Onset Date: 04/25/17 Current Visit: No Status: Chronic Plan: Alcohol abuse. Pt drinks 2 to 3 packs of 12 beer a day -Last drink last night. -CIWA protocol (4) Malnutrition Current Visit: No Status: Acute Qualifiers: Malnutrition type: protein-calorie malnutrition Protein-calorie malnutrition severity: moderate Qualified Code(s): E44.0 - Moderate protein- calorie malnutrition (5) UTI (urinary tract infection) Current Visit: Yes Status: Acute Plan: UA with UTI -Urine culture + for Gram - rods -IV cipro and flagyl on board Qualifiers: Urinary tract infection type: acute cystitis Hematuria presence: without hematuria Qualified Code(s): N30.00 - Acute cystitis without hematuria Discharge Plan: Other Plan to discharge in: 48 Hours - Code Status/Comfort Care Code Status Assessed: Yes Critical Care: No
--- NOTE | 2017-08-02 16:28 | CON ---
Date of Consultation: 08/01/2017 Reason: Chronic cholecystitis and cholelithiasis. History Of Present Illness: The patient is a 62-year-old gentleman, who has significant history of a lcohol abuse as well as cirrhosis and ascites, and he had been admitted in the end of April with si milar issues. At that time, we did not have a power of deputy commonwealth's attorney and he was unable to make informed c onsent and he improved on medical management. Therefore, he was discharged as such to follow up as a n outpatient with his [id number], he never did and he returns to the ER with biliary colic, up per abdominal pain going to the back, associated with occasional nausea and vomiting. No diarrhea or constipation. No blood in the stool. No sore throat, runny nose, cough, headaches, or dizziness. No chest pain. Review of Systems: Otherwise unremarkable. Past Medical History: Significant for alcohol abuse, history of DTs in the past, and rhabdomyolysis. Past Surgical History: Significant for knee replacement. Allergies: NONE. Social History: He used to smoke. He is active drinker of alcohol, he states the last drink was 4 o r 5 days ago. Physical Examination: Vital Signs: Stable. His heart rate is 115, temperature is 99.3, and blood pressure is 157/88. General: He is awake, however, is confused. Head and Neck: He has icterus. Cranial nerves 2 through 12 are grossly within normal limits. No ne ck masses. No JVD. Throat clear. Neck supple. Chest: Clear. Heart: S1 and S2. Abdomen: Soft. Positive tenderness in the epigastric and right upper quadrant area. No rebound. T he patient is voluntarily guarding, so it is hard to get a good exam. Extremities: Adequately perfused. Nontender. Neuro: Nonfocal. Laboratory Data: His white count is 9.5, there is a left shift. Platelets are 142. H and H are 11. 9 and 33.7. INR is 1.37. His chemistry is reviewed. His bilirubin on admission was 3.3, direct is 0.6. His AST, ALT, alkaline phosphatase, ammonia level are within normal limits. Lipase is within n ormal limit. His CT report and ultrasound done previously as well as an MRCP were all reviewed with the radiologist. He has essentially chronic cholecystitis and cholelithiasis and this sludge and sma ll stones, wall is slightly thickened and edematous. Assessment: Chronic cholecystitis and cholelithiasis, history of alcohol abuse, cirrhosis, delirium tremens. Recommendations: We will admit the patient. IV fluids, IV antibiotics. Monitor him another 24 hour for DTs to make sure he does not go into DTs, and if he remains clinically similar to what he has in the last 24 hours, we will proceed with a laparoscopic cholecystectomy, possible open. The risks, b enefits and alternatives were discussed with the [id number]. She understands and agrees to th e procedure. The patient vaguely understands what is happening that he was present in the room when I discussed the case with the power of deputy commonwealth's attorney, and plan of care was discussed with Dr. Caicedo. OLENA/ALEXANDER Voice ID: [id number] Report ID: [id number]
[2017-08-03] MEDS: METRONIDAZOLE 500mg IVPB 500 MG/100 ML BAG IV SCH ×3 (00:28→17:40)
[2017-08-03] MEDS: CIPROFLOXACIN 400mg IV 400 MG/200 ML BAG IV SCH (05:05)
[2017-08-03] MEDS: chlordiazePOXIDE HCl 25 MG CAP PO SCH ×4 (05:05→23:59)
[2017-08-03] MEDS: Morphine 2 MG/2 ML SYR IV PRN ×3 (06:14→21:35)
[2017-08-03 06:49] LABS: Absolute Monocytes 0.9 K/uL (0.1-1.3); Absolute Neutrophil 8.1 K/uL (1.8-8.0); Basophils % 0.2 % (0-1.3); Eosinophils % 0.8 % (0-4.4); Hematocrit 31.7 % (39.6-49.0); Lymphocytes % 10.2 % (15.3-44.8); MCH 35.6 pg (27.0-35.0); MCV 102.3 fL (80-100); MPV 7.8 fL (7.6-11.3); Monocytes % 9.3 % (3.3-12.3)
[2017-08-03 07:01] LABS: ALT/SGPT 10 IU/L (10-60); AST/SGOT 19 IU/L (10-42); Albumin 2.6 g/dL (3.2-5.5); Alkaline Phosphatase 70 IU/L (42-121); Amylase Level 26 U/L (28-100); BUN Blood Urea Nitrogen 11 mg/dL (6-20); Bicarbonate 23 mEq/L (21-31); Bilirubin Direct 0.5 mg/dL (0-0.2); Glucose Level 98 mg/dL (65-120); Lipase 14 U/L (22-51); Phosphorus 2.4 mg/dL (2.5-4.3); Potassium 3.5 mEq/L (3.6-5.0); Protein, Total 6.3 g/dL (6.0-8.3); Sodium Level 134 mEq/L (135-145)
[2017-08-03 07:09] LABS: Magnesium 0.7 mg/dL (1.8-2.5)
[2017-08-03] MEDS ORDERED: POTASSIUM PHOS IN 0.9 % NACL 15 MMOL/250 ML BAG IV ONE (08:00)
[2017-08-03] MEDS: FOLIC ACID 1 MG, MULTIVITAMINS INJ 10 ML, THIAMINE HCL 100 MG in NA CHLORIDE 0.9% 1,000 ML IV SCH (08:07)
[2017-08-03] MEDS: DOCUSATE NA 100 MG CAP PO SCH ×2 (08:08→21:00)
[2017-08-03] MEDS: CYANOCOBALAMIN 1,000 MCG TAB PO SCH (08:08)
[2017-08-03] MEDS: ASPIRIN EC 81 MG TAB PO SCH (08:08)
[2017-08-03] MEDS: PANTOPRAZOLE 40 MG INJ IVP SCH (08:09)
[2017-08-03] MEDS: SODIUM CHLORIDE 0.9% 10ML INJ IV SCH (08:18)
[2017-08-03] MEDS ORDERED: MAGNESIUM 50% 3 GM in NA CHLORIDE 0.9% 100 ML IV ONE (08:30)
[2017-08-03] MEDS: NA CHLORIDE 0.9% 1,000 ML IV SCH (09:00)
--- NOTE | 2017-08-03 09:34 | P.PN ---
Subjective Date of Service: 08/03/17 Primary Care Provider: None Chief Complaint: Abd Pain Pt seen and examined at bedside with RN. Chart reviewed. Case D/W surgery. Plan is for Surgery blanche AM. Currently monitoring closely for DT's. Pt is AAOx1. But intermittent confusion. Low mag today. Will replace. Review of Systems General: As per HPI Physical Examination - Vital Signs Temperature: 99.2 F Blood Pressure: 147/88 Pulse: 111 Respirations: 18 Pulse Ox (%): 96 - Physical Exam General: Alert, In no apparent distress, Confused (Intermittent) HEENT: Atraumatic, Scleral icterus Neck: Supple Respiratory: Clear to auscultation bilaterally, Normal air movement Cardiovascular: Regular rate/rhythm, Normal S1 S2 Gastrointestinal: Normal bowel sounds, Tenderness Musculoskeletal: No tenderness Integumentary: No rashes Neurological: Normal speech, Normal tone, Normal affect Lymphatics: No axilla or inguinal lymphadenopathy - Studies Microbiology Data (last 24 hrs): 08/01/17 13:20 Clean Catch Urine [place] Count - Final >100,000 CFU/ML. 08/01/17 13:20 Clean Catch Urine - Final Escherichia Coli Medications List Reviewed: Yes Assessment & Plan - Problems (Diagnosis) (1) Cholecystitis Onset Date: 05/05/17 Current Visit: No Status: Acute Plan: Acute Cholecysititis on the Abd CT -General Surgery Consulted. Appreciate reccs. -IV fluids, NPO and IV cipro and flagyl -Surgery planned for blanche AM due to low mag today -Pt is high risk for surgery given his Liver cirrhosis and elevated Tbili. Spoke with POA. In agreement for surgery due to repeated symptoms. -Pt educated extensively as well about the risk and benefits. (2) Liver cirrhosis Current Visit: Yes Status: Acute Plan: Alcohol Liver Cirrhosis. Noncompliant with medication and alcohol abuse -CIWA protocol -No GI risk control field representative this weekend. -Will consult on Friday. Qualifiers: Hepatic cirrhosis type: alcoholic cirrhosis Ascites presence: with ascites Qualified Code(s): K70.31 - Alcoholic cirrhosis of liver with ascites (3) Alcohol abuse Onset Date: 04/25/17 Current Visit: No Status: Chronic Plan: Alcohol abuse. Pt drinks 2 to 3 packs of 12 beer a day -Last drink last night. -CIWA protocol (4) Malnutrition Current Visit: No Status: Acute Qualifiers: Malnutrition type: protein-calorie malnutrition Protein-calorie malnutrition severity: moderate Qualified Code(s): E44.0 - Moderate protein- calorie malnutrition (5) UTI (urinary tract infection) Current Visit: Yes Status: Acute Plan: UA with UTI -Urine culture + for ECOLI. -IV cipro and flagyl on board Qualifiers: Urinary tract infection type: acute cystitis Hematuria presence: without hematuria Qualified Code(s): N30.00 - Acute cystitis without hematuria Discharge Plan: Home Plan to discharge in: 24 Hours - Code Status/Comfort Care Code Status Assessed: Yes Critical Care: No
--- NOTE | 2017-08-03 13:57 | PN ---
Date of Progress Note: 08/03/2017 Subjective: The patient is awake, alert. Still complaining of pain. Objective: Vital Signs: Significant for temperature of 99.6. His heart rate is 140. Blood pressur e is 148/85. Abdomen: Tenderness in the right upper quadrant. No peritonitis. Laboratory Data: Reviewed. His white count is 10.2, platelets are 133. Magnesium is 0.7. Assessment: Chronic cholecystitis and cholelithiasis in the patient at high risk for DTs and electro lyte abnormality. Recommendations: I would recommend continuing to replace his magnesium and get it within therapeutic level before proceeding with any surgery, so we will postpone the surgery for today. We will tentat ively have it on the schedule for tomorrow depending on the patient's clinical condition. If he does go into DTs, which I am concerned about we may have to wait until he is more stable to do the surger y and we will manage this patient carefully. OLENA/ALEXANDER Voice ID: [id number] Report ID: [id number]
[2017-08-03] MEDS: PIPER/TAZO/NS 3.375gm 3.375 GM/100 ML BAG IV SCH (17:40)
[2017-08-03] MEDS ORDERED: Magnesium Sulfate 2gm IVPB 2 G/50 ML BAG IV ONE (19:00)
[2017-08-04] MEDS: PIPER/TAZO/NS 3.375gm 3.375 GM/100 ML BAG IV SCH ×3 (01:00→17:28)
[2017-08-04] MEDS: METRONIDAZOLE 500mg IVPB 500 MG/100 ML BAG IV SCH ×3 (01:46→17:28)
[2017-08-04] MEDS: Morphine 2 MG/2 ML SYR IV PRN ×2 (03:48→18:23)
[2017-08-04 04:26] LABS: Absolute Lymphocytes (CBC) 0.9 K/uL (0.7-4.9); Absolute Monocytes 0.8 K/uL (0.1-1.3); Absolute Neutrophil 4.9 K/uL (1.8-8.0); Basophils % 0.2 % (0-1.3); Eosinophils % 2.2 % (0-4.4); MCH 35.4 pg (27.0-35.0); MCV 102.2 fL (80-100); MPV 7.8 fL (7.6-11.3); Monocytes % 12.5 % (3.3-12.3); RBC Red Blood Cell Count 2.84 M/uL (4.33-5.43)
[2017-08-04] MEDS: NA CHLORIDE 0.9% 1,000 ML IV SCH ×2 (05:13→17:29)
[2017-08-04 05:34] LABS: ALT/SGPT 6 IU/L (10-60); AST/SGOT 13 IU/L (10-42); Albumin 2.5 g/dL (3.2-5.5); Alkaline Phosphatase 52 IU/L (42-121); Amylase Level 23 U/L (28-100); BUN Blood Urea Nitrogen 7 mg/dL (6-20); Bicarbonate 24 mEq/L (21-31); Bilirubin Total 1.2 mg/dL (0.3-1.2); Glucose Level 99 mg/dL (65-120); Lipase 15 U/L (22-51); Magnesium 1.6 mg/dL (1.8-2.5); Phosphorus 3.3 mg/dL (2.5-4.3); Potassium 3.1 mEq/L (3.6-5.0); Protein, Total 5.8 g/dL (6.0-8.3); Sodium Level 131 mEq/L (135-145)
[2017-08-04] MEDS: chlordiazePOXIDE HCl 25 MG CAP PO SCH ×3 (06:00→22:01)
[2017-08-04] MEDS ORDERED: MAGNESIUM SULFATE 1 gm IVPB 1 GM/100 ML BAG IV ONE (07:00)
[2017-08-04] MEDS: PANTOPRAZOLE 40 MG INJ IVP SCH (08:13)
[2017-08-04] MEDS: KCL 20 MEQ/100 mL IVPB 20 MEQ/100 ML BAG IV SCH ×2 (08:13→10:25)
[2017-08-04] MEDS: ASPIRIN EC 81 MG TAB PO SCH (08:28)
[2017-08-04] MEDS: DOCUSATE NA 100 MG CAP PO SCH ×2 (08:28→22:02)
[2017-08-04] MEDS: CYANOCOBALAMIN 1,000 MCG TAB PO SCH (08:30)
[2017-08-04] MEDS: FOLIC ACID 1 MG, MULTIVITAMINS INJ 10 ML, THIAMINE HCL 100 MG in NA CHLORIDE 0.9% 1,000 ML IV SCH (10:03)
[2017-08-04] MEDS: SODIUM CHLORIDE 0.9% 10ML INJ IV SCH (10:04)
--- NOTE | 2017-08-04 12:13 | PN ---
Date of Progress Note: 08/04/2017 Subjective: The patient is awake, alert. No complaints. Pain is better. Objective: Vital Signs: Stable, afebrile. Abdomen: Less tender. Minimal tenderness in the epigastrium. Laboratory Data: His magnesium is still low at 1.6. Potassium is 3.1. Assessment: Chronic cholecystitis and cholelithiasis. Recommendations: Discussed the case with Dr. Nichols. We will correct the electrolyte abnormalities and we will tentatively schedule him again for tomorrow around 10 a.m., n.p.o. after midnight. Eliza nue antibiotics. /MODL Voice ID: [id number] Report ID: [id number]
[2017-08-04] MEDS ORDERED: LORazepam 2 MG/ML VIAL IV PRN (15:52)
--- NOTE | 2017-08-04 15:59 | P.PN ---
Subjective Date of Service: 08/04/17 Primary Care Provider: None Chief Complaint: Abd Pain Subjective: Other (Patient doing better. Less abdominal pain noted. No significant nausea or vomiting. No tremors noted.) Physical Examination - Vital Signs Temperature: 99.7 F Blood Pressure: 139/87 Pulse: 102 Respirations: 18 Pulse Ox (%): 97 - Physical Exam General: Alert, In no apparent distress, Oriented x3, Cooperative HEENT: Atraumatic Neck: Supple Respiratory: Clear to auscultation bilaterally, Normal air movement Cardiovascular: Normal pulses, Regular rate/rhythm Gastrointestinal: Normal bowel sounds, Soft and benign, Non-distended, No tenderness, No masses, No rebound, No guarding Musculoskeletal: No erythema, No tenderness, No warmth Integumentary: No tenderness/swelling, No erythema, No warmth, No cyanosis Neurological: Normal speech, Normal strength at 5/5 x4 extr, Normal tone, Normal affect - Studies Medications List Reviewed: Yes Assessment & Plan - Problems (Diagnosis) (1) Hyponatremia Current Visit: Yes Status: Acute Plan: Likely from dehydration. Will continue with fluids. Will increase IV fluids but monitor closely since the patient has a history of liver cirrhosis. Will continue to replace electrolytes. Case discussed with surgery. Anticipate possible surgery tomorrow for chronic cholecystitis. (2) Cholecystitis Onset Date: 05/05/17 Current Visit: Yes Status: Chronic Plan: Acute on chronic cholecystitis with cholelithiasis. Will continue with IV fluid hydration. Continue IV antibiotic therapy. Will replace electrolytes. Will monitor for alcohol withdrawal. Case discussed at length with surgery. Anticipate surgery tomorrow for removal of gallbladder. (3) Liver cirrhosis Onset Date: 08/04/17 Current Visit: Yes Status: Chronic Plan: Patient with history of alcoholic cirrhosis. Will continue monitor closely. Overall stable. Alcohol cessation addressed in detail Qualifiers: Hepatic cirrhosis type: alcoholic cirrhosis Ascites presence: with ascites Qualified Code(s): K70.31 - Alcoholic cirrhosis of liver with ascites (4) Malnutrition Onset Date: 08/04/17 Current Visit: Yes Status: Acute Plan: Will continue with banana bag. Will continue with electrolyte replacement. Recommendation to discontinue alcohol at discharge. Qualifiers: Malnutrition type: protein-calorie malnutrition Protein-calorie malnutrition severity: moderate Qualified Code(s): E44.0 - Moderate protein- calorie malnutrition (5) UTI (urinary tract infection) Current Visit: Yes Status: Acute Plan: Patient found to have UTI. Will continue with IV antibiotic therapy. This can be switched over to oral medication after surgery. Qualifiers: Urinary tract infection type: acute cystitis Hematuria presence: without hematuria Qualified Code(s): N30.00 - Acute cystitis without hematuria (6) Alcohol abuse Onset Date: 04/25/17 Current Visit: Yes Status: Chronic Plan: Patient admits to alcohol abuse. Alcohol level was less than 10 upon admission. Will continue with DT prophylaxis. Patient on Librium scheduled. Will decrease Librium to 3 times a day. This likely can be changed over to p.r.n. after surgery. Will continue monitor closely. Ativan available for severe agitation. (7) Hypokalemia Onset Date: 04/25/17 Current Visit: No Status: Acute Plan: Will continue monitor in place appropriately. Replacement protocol in place. (8) Hypomagnesemia Onset Date: 04/25/17 Current Visit: No Status: Acute Plan: Will continue to monitor and replace appropriately. Replacement protocol in place. (9) GERD (gastroesophageal reflux disease) Current Visit: Yes Status: Chronic Plan: Will continue with PPI. (10) Atelectasis Current Visit: Yes Status: Suspected Plan: Initial x-ray showed possible atelectasis. Will provide incentive spirometer. Discharge Plan: Home Plan to discharge in: 48 Hours Time Spent Managing Pts Care (In Minutes): 55
[2017-08-04] MEDS: ENOXAPARIN 40 MG/0.4 ML SQ SCH (17:29)
[2017-08-04] MEDS ORDERED: POTASSIUM 25 MEQ EFFERV TAB PO ONE (20:10)
[2017-08-04] MEDS ORDERED: Magnesium Sulfate 2gm IVPB 2 G/50 ML BAG IV ONE (20:39)
[2017-08-05] MEDS: Morphine 2 MG/2 ML SYR IV PRN ×2 (00:33→06:25)
[2017-08-05] MEDS: METRONIDAZOLE 500mg IVPB 500 MG/100 ML BAG IV SCH ×3 (00:34→16:22)
[2017-08-05] MEDS: PIPER/TAZO/NS 3.375gm 3.375 GM/100 ML BAG IV SCH ×3 (00:34→16:23)
[2017-08-05] MEDS: NA CHLORIDE 0.9% 1,000 ML IV SCH ×2 (05:12→16:24)
[2017-08-05 05:17] LABS: Absolute Lymphocytes (CBC) 0.8 K/uL (0.7-4.9); Absolute Monocytes 0.8 K/uL (0.1-1.3); Absolute Neutrophil 3.8 K/uL (1.8-8.0); Basophils % 0.4 % (0-1.3); Eosinophils % 2.9 % (0-4.4); Hematocrit 27.8 % (39.6-49.0); Lymphocytes % 13.8 % (15.3-44.8); MCH 36.4 pg (27.0-35.0); MCV 102.5 fL (80-100); Monocytes % 13.8 % (3.3-12.3); RBC Red Blood Cell Count 2.71 M/uL (4.33-5.43)
[2017-08-05 05:39] LABS: BUN Blood Urea Nitrogen 5 mg/dL (6-20); Bicarbonate 23 mEq/L (21-31); Glucose Level 89 mg/dL (65-120); Magnesium 1.6 mg/dL (1.8-2.5); Phosphorus 2.5 mg/dL (2.5-4.3); Potassium 3.9 mEq/L (3.6-5.0); Sodium Level 136 mEq/L (135-145)
[2017-08-05] MEDS ORDERED: MAGNESIUM SULFATE 1 gm IVPB 1 GM/100 ML BAG IV ONE (05:47)
[2017-08-05] MEDS ORDERED: POTASSIUM PHOS IN 0.9 % NACL 15 MMOL/250 ML BAG IV ONE (08:00)
[2017-08-05] MEDS: PANTOPRAZOLE 40 MG INJ IVP SCH (08:07)
[2017-08-05] MEDS: SODIUM CHLORIDE 0.9% 10ML INJ IV SCH (08:07)
[2017-08-05] MEDS: FOLIC ACID 1 MG, MULTIVITAMINS INJ 10 ML, THIAMINE HCL 100 MG in NA CHLORIDE 0.9% 1,000 ML IV SCH (08:08)
[2017-08-05] MEDS: chlordiazePOXIDE HCl 25 MG CAP PO SCH ×3 (08:08→21:00)
[2017-08-05] MEDS: DOCUSATE NA 100 MG CAP PO SCH ×2 (08:08→21:33)
[2017-08-05] MEDS: ASPIRIN EC 81 MG TAB PO SCH (08:08)
[2017-08-05] MEDS: CYANOCOBALAMIN 1,000 MCG TAB PO SCH (08:09)
[2017-08-05] MEDS ORDERED: Ringers Lactate 1,000 ML IV ONE (09:23)
[2017-08-05] MEDS ORDERED: PROPOFOL 200 MG/20 ML VIAL IV ONE (09:38)
[2017-08-05] MEDS ORDERED: FENTANYL CITR 100 MCG/2 ML ONE (09:38)
[2017-08-05] MEDS ORDERED: ONDANSETRON 4 MG/2 ML VIAL ONE (09:38)
[2017-08-05] MEDS ORDERED: MIDAZOLAM HCL 2 MG/2 ML INJ ONE (09:38)
[2017-08-05] MEDS ORDERED: LIDOCAINE 2% MPF 5 ML VIAL ONE (09:38)
[2017-08-05] MEDS ORDERED: ROCURONIUM 50 MG/5 ML VIAL IV ONE (09:38)
[2017-08-05] MEDS ORDERED: Magnesium Sulfate 2gm IVPB 2 G/50 ML BAG IV ONE (09:39)
[2017-08-05] MEDS ORDERED: Phenylephrine HCl 10 MG/ML 1 ML VIAL ONE (10:03)
[2017-08-05] MEDS ORDERED: GLYCOPYRROLATE 0.2 MG/ML SYR ONE (10:36)
[2017-08-05] MEDS ORDERED: NEOSTIGMINE 1 MG/ML -5 ML SYRINGE ONE (10:36)
--- NOTE | 2017-08-05 10:38 | P.OP ---
Plan Nurse: Mary Lou CHANG Preoperative diagnosis: Acute Cholecystitis and Cholelithiasis Postoperative diagnosis: same with adhesions Primary procedure: Lap Neyda, MC Anesthesia: General Estimated blood loss: min Specimen: gb Findings: as above Complications: None Transferred to: Recovery Room Condition: Good
[2017-08-05] MEDS ORDERED: MEPERIDINE HCL 25 MG/0.5 ML ONE (10:42)
[2017-08-05] MEDS: HYDROMORPHONE HCL 2 MG/ML inj IV PRN ×2 (13:04→18:39)
[2017-08-05] MEDS: ENOXAPARIN 40 MG/0.4 ML SQ SCH (16:23)
[2017-08-05] MEDS: HYDROCODONE/APAP 7.5/325 MG TAB PO PRN (17:38)
--- NOTE | 2017-08-05 18:08 | P.PN ---
Subjective Date of Service: 08/05/17 Primary Care Provider: None Chief Complaint: Abd Pain Subjective: No new changes Review of Systems 10-point ROS is otherwise unremarkable Physical Examination - Vital Signs Temperature: 98.3 F Blood Pressure: 101/57 Pulse: 109 Respirations: 16 Pulse Ox (%): 93 - Physical Exam General: In no apparent distress HEENT: Atraumatic, Normocephalic Neck: Supple, JVD not distended, No Thyromegaly, No LAD Respiratory: Clear to auscultation bilaterally, Normal air movement Cardiovascular: No edema, Normal pulses, Regular rate/rhythm, Normal S1 S2, Abnormal S3, No gallops, No rubs, No murmurs Gastrointestinal: Non-distended, W/out hepatosplenomegaly, No ascites, No masses , Tenderness Musculoskeletal: No clubbing, No swelling, No contractures, No erythema, No tenderness, No warmth - Studies Medications List Reviewed: Yes Assessment And Plan - Current Problems (Diagnosis) (1) Hyponatremia Current Visit: Yes Status: Acute Plan: will monitor sodium level (2) Alcohol abuse Onset Date: 04/25/17 Current Visit: Yes Status: Chronic Plan: counselled monitor closely, out of the window period for DT on librium will continue continue banana bag monitor electrolytes (3) Cholecystitis Onset Date: 05/05/17 Current Visit: Yes Status: Chronic Plan: s/p cholecystectomy today care per surgery pain control anti emetics (4) Liver cirrhosis Onset Date: 08/04/17 Current Visit: Yes Status: Chronic Plan: monitor volume status avoid hepatotoxic meds Qualifiers: Hepatic cirrhosis type: alcoholic cirrhosis Ascites presence: with ascites Qualified Code(s): K70.31 - Alcoholic cirrhosis of liver with ascites Plan to discharge in: 48 Hours - Code Status/Comfort Care Code Status Assessed: Yes Code Status: Full Code Physician Review: Patient Assessed, Agree with Above Assessment and Plan Critical Care: No Time Spent Managing PTS Care (In Minutes): 30
--- NOTE | 2017-08-05 22:52 | OP ---
Date of Procedure: 08/05/2017 Surgeon: Robles Zapata MD Straight Truck Driver: YECENIA Fuentes, certified. Preoperative Diagnoses: Acute cholecystitis and cholelithiasis. Postoperative Diagnoses: Acute cholecystitis and cholelithiasis with adhesions. Procedure Performed: Laparoscopic cholecystectomy and lysis of adhesions. Estimated Blood Loss: Minimal. Specimen: Gallbladder. Findings: As above. Anesthesia: General. Complications: None. Disposition: The patient tolerated the procedure in stable condition and was taken to Recovery in go od general condition. Description Of Procedure: The patient was brought to the OR and placed in the supine position. Gene ral anesthesia was begun. The patient was prepped and draped in usual sterile fashion. Marcaine 0.5 % was infiltrated locally. A #15 blade was used to make a 1-cm supraumbilical midline incision. Sub cutaneous tissue was divided. Fascia was identified and divided. A #1 Vicryl stay suture was placed . Peritoneal cavity was entered with blunt dissection. A 12-mm trocar was placed into the peritonea l cavity under direct vision. Pneumoperitoneum was established. Then, three 5-mm trocars were place d, one in the epigastrium just to the right of midline and two in the right subcostal region. Laparo scopy revealed extensive adhesions which were taken down with sharp and blunt dissection. They were omental in nature from the gallbladder. Gallbladder was distended and it was aspirated and then fund us was retracted superiorly. Infundibulum was identified and retracted inferolaterally. Cystic duct and cystic artery were clearly identified with blunt dissection. Clips were placed. Both structure s were divided. Cautery was used to remove the gallbladder from the liver bed. Bleeding on the live r bed was controlled with cautery. The gallbladder was retrieved through the umbilicus via an EndoCa tch bag. Right upper quadrant was irrigated. Effluent was clear. No evidence of bleeding or bowel injury appreciated. Subsequently, all trocars were removed under direct vision. Stay sutures were t ied to each other across the fascial defect. Subcutaneous wounds were irrigated. Bleeding was contr olled with cautery. A 3-0 chromic was used for subcutaneous tissue and staple was used to close the skin. Sterile dressing was applied. The patient was awakened and taken to Recovery in good general condition. /MODL Voice ID: [id number] Report ID: [id number]
[2017-08-06] MEDS: HYDROCODONE/APAP 7.5/325 MG TAB PO PRN ×4 (01:08→18:29)
[2017-08-06] MEDS: PIPER/TAZO/NS 3.375gm 3.375 GM/100 ML BAG IV SCH ×3 (01:09→18:22)
[2017-08-06] MEDS: METRONIDAZOLE 500mg IVPB 500 MG/100 ML BAG IV SCH ×3 (01:09→18:23)
[2017-08-06 06:11] LABS: Magnesium 1.8 mg/dL (1.8-2.5); Phosphorus 3.3 mg/dL (2.5-4.3); Potassium 4.1 mEq/L (3.6-5.0)
[2017-08-06] MEDS ORDERED: MAGNESIUM SULFATE 1 gm IVPB 1 GM/100 ML BAG IV ONE (06:20)
[2017-08-06 06:34] LABS: Absolute Lymphocytes (CBC) 0.8 K/uL (0.7-4.9); Absolute Monocytes 1.2 K/uL (0.1-1.3); Absolute Neutrophil 7.9 K/uL (1.8-8.0); Basophils % 0.3 % (0-1.3); Eosinophils % 0.9 % (0-4.4); Hematocrit 29.1 % (39.6-49.0); Lymphocytes % 7.8 % (15.3-44.8); MCH 35.8 pg (27.0-35.0); MCV 103.1 fL (80-100); MPV 8.1 fL (7.6-11.3); Monocytes % 12.2 % (3.3-12.3); RBC Red Blood Cell Count 2.82 M/uL (4.33-5.43)
[2017-08-06] MEDS: NA CHLORIDE 0.9% 1,000 ML IV SCH ×2 (07:46→20:27)
[2017-08-06] MEDS: SODIUM CHLORIDE 0.9% 10ML INJ IV SCH (09:19)
[2017-08-06] MEDS: PANTOPRAZOLE 40 MG INJ IVP SCH (09:19)
[2017-08-06] MEDS: ASPIRIN EC 81 MG TAB PO SCH (09:19)
[2017-08-06] MEDS: chlordiazePOXIDE HCl 25 MG CAP PO SCH ×3 (09:19→20:26)
[2017-08-06] MEDS: DOCUSATE NA 100 MG CAP PO SCH ×2 (09:19→20:26)
[2017-08-06] MEDS: CYANOCOBALAMIN 1,000 MCG TAB PO SCH (09:20)
[2017-08-06] MEDS: FOLIC ACID 1 MG, MULTIVITAMINS INJ 10 ML, THIAMINE HCL 100 MG in NA CHLORIDE 0.9% 1,000 ML IV SCH (10:44)
--- NOTE | 2017-08-06 12:19 | P.PN ---
Subjective Date of Service: 08/06/17 Primary Care Provider: None Chief Complaint: Abd Pain Subjective: Other (reports inability to ambulate for 3 weeks, states he is unable to stand up despite being able to move his legs) Review of Systems 10-point ROS is otherwise unremarkable Physical Examination - Vital Signs Temperature: 98.6 F Blood Pressure: 112/65 Pulse: 106 Respirations: 20 Pulse Ox (%): 94 - Physical Exam General: Alert, In no apparent distress, Oriented x3, Cooperative HEENT: Atraumatic Neck: Supple, JVD not distended, No Thyromegaly, No LAD Respiratory: Clear to auscultation bilaterally, Normal air movement Cardiovascular: No edema, Normal pulses, Regular rate/rhythm, Normal S1 S2 Gastrointestinal: Normal bowel sounds, Soft and benign, Non-distended, W/out hepatosplenomegaly Musculoskeletal: No clubbing, No swelling, No contractures, No erythema, No tenderness Neurological: Normal speech, Normal strength at 5/5 x4 extr, Normal tone, Sensation intact, Cranial nerves 3-12 intact - Studies Medications List Reviewed: Yes Assessment And Plan - Current Problems (Diagnosis) (1) Hyponatremia Current Visit: Yes Status: Acute Plan: will monitor sodium level (2) Alcohol abuse Onset Date: 04/25/17 Current Visit: Yes Status: Chronic Plan: counselled monitor closely, out of the window period for DT on librium will continue continue multivitamin, thiamine and folate monitor electrolytes (3) Cholecystitis Onset Date: 05/05/17 Current Visit: Yes Status: Chronic Plan: s/p cholecystectomy ok to discharge from surgery point pain control anti emetics (4) Liver cirrhosis Onset Date: 08/04/17 Current Visit: Yes Status: Chronic Plan: monitor volume status avoid hepatotoxic meds Qualifiers: Hepatic cirrhosis type: alcoholic cirrhosis Ascites presence: with ascites Qualified Code(s): K70.31 - Alcoholic cirrhosis of liver with ascites (5) Weakness Current Visit: Yes Status: Acute Plan: etiology not clear will obtain MRI of spine PT consult Physician Review: Patient Assessed, Agree with Above Assessment and Plan
--- NOTE | 2017-08-06 14:39 | PN ---
Date of Progress Note: 08/06/2017 Subjective: The patient is awake, alert, tolerating diet. Complaining of incisional pain. Objective: Vital Signs: Stable. Afebrile. Abdomen: Benign. Laboratory Data: Reviewed. Assessment: Status post laparoscopic cholecystectomy. Recommendation: The patient states that he cannot walk, therefore a medical workup is being done for some back issues and once that imaging is done, we will get physical therapy to ambulate the patient , make sure he is able to ambulate prior to discharge. Plan for care discussed with Dr. Vaughan. OLENA/ALEXANDER Voice ID: [id number] Report ID: [id number]
[2017-08-06] MEDS: HYDROMORPHONE HCL 2 MG/ML inj IV PRN (15:20)
--- NOTE | 2017-08-06 15:50 | RAD REPORT ---
EXAM DESCRIPTION: MRI - Spine Lumbar W/Wo Cont - 08/06/2017 3:04 pm CLINICAL HISTORY: Bilateral leg radiculopathy. Lower leg weakness. COMPARISON: None. TECHNIQUE: Axial and sagittal magnetic resonance imaging of the lumbar spine was obtained. 16 mL Mul tiHance was administered intravenously. FINDINGS: L1-L2 is unremarkable. A left lateral disc bulge is present at L2-L3 which results in mild to moderate narrowing left neural foramina. Disc bulge and osteophytes are present at L3-L4. There is mild narrowing of the neural foramina. A small disc bulge is present L4-L5. The thecal sac is not significantly narrowed. Mild narrowing of the neural foramina bilaterally is noted. A small central disc herniation is present at L5-S1 which does not significantly encroach upon the th ecal sac. The S1 nerve roots are unremarkable. Neural foramina are patent. Epidural lipomatosis is present. No significant abnormal signal within the bones is noted. No significant abnormal enhancement is disp layed. IMPRESSION: 1. Small central disc herniation L5-S1. 2. Spondylosis L2-L3 resulting in mild to moderate left foraminal stenosis.
[2017-08-06] MEDS: ENOXAPARIN 40 MG/0.4 ML SQ SCH (18:22)
[2017-08-07] MEDS: PIPER/TAZO/NS 3.375gm 3.375 GM/100 ML BAG IV SCH ×3 (00:40→17:57)
[2017-08-07] MEDS: METRONIDAZOLE 500mg IVPB 500 MG/100 ML BAG IV SCH ×3 (00:40→17:00)
[2017-08-07] MEDS: HYDROCODONE/APAP 7.5/325 MG TAB PO PRN ×5 (00:46→18:57)
[2017-08-07] MEDS ORDERED: Magnesium Sulfate 2gm IVPB 2 G/50 ML BAG IV ONE (06:06)
[2017-08-07 06:48] VITALS: BMI 23.6
[2017-08-07] MEDS: SODIUM CHLORIDE 0.9% 10ML INJ IV SCH (09:00)
[2017-08-07] MEDS: chlordiazePOXIDE HCl 25 MG CAP PO SCH (09:00)
[2017-08-07] MEDS: PANTOPRAZOLE 40 MG INJ IVP SCH (09:40)
[2017-08-07] MEDS: ASPIRIN EC 81 MG TAB PO SCH (09:40)
[2017-08-07] MEDS: CYANOCOBALAMIN 1,000 MCG TAB PO SCH (09:40)
[2017-08-07] MEDS: DOCUSATE NA 100 MG CAP PO SCH ×2 (09:40→21:38)
[2017-08-07] MEDS: FOLIC ACID 1 MG, MULTIVITAMINS INJ 10 ML, THIAMINE HCL 100 MG in NA CHLORIDE 0.9% 1,000 ML IV SCH (09:53)
--- NOTE | 2017-08-07 11:43 | PN ---
Date of Progress Note: 08/07/2017 Subjective: The patient is awake, alert, tolerating diet, and states that he is weak and cannot ambu late by himself. Objective: Vital Signs: Stable. Afebrile. Abdomen: Benign. Laboratory Data: The MRI of the lumbar region reviewed. No significant findings, except for mild st enosis. Assessment: Status post laparoscopic cholecystectomy. Recommendations: Once the patient is cleared by PT, to be discharged. He has a home health assistan ce at home to help take care of him and once we deemed that it is safe for him to go back home, he is cleared for discharge to follow up with me in my office in a week. OLENA/ALEXANDER Voice ID: [id number] Report ID: [id number]
[2017-08-07] MEDS: chlordiazePOXIDE HCl 5 MG CAP PO SCH ×2 (15:13→21:39)
--- NOTE | 2017-08-07 17:06 | P.PN ---
Subjective Date of Service: 08/07/17 Primary Care Provider: None Chief Complaint: Abd Pain Subjective: No new changes Review of Systems 10-point ROS is otherwise unremarkable Physical Examination - Vital Signs Temperature: 98.0 F Blood Pressure: 123/75 Pulse: 98 Respirations: 18 Pulse Ox (%): 98 - Physical Exam General: Alert, In no apparent distress, Oriented x3 HEENT: Atraumatic, Normocephalic, PERRLA Neck: Supple, 2+ carotid pulse no bruit, No Thyromegaly, No LAD Respiratory: Clear to auscultation bilaterally, Normal air movement Cardiovascular: No edema, Normal pulses, Regular rate/rhythm, Normal S1 S2, No gallops, No rubs, No murmurs Gastrointestinal: Normal bowel sounds, Soft and benign, Non-distended, W/out hepatosplenomegaly, No ascites, No tenderness, No masses, No rebound, No guarding Musculoskeletal: No clubbing, No swelling, No contractures, No erythema, No tenderness, No warmth Neurological: Normal speech, Normal strength at 5/5 x4 extr, Normal tone, Sensation intact - Studies Medications List Reviewed: Yes Assessment And Plan - Current Problems (Diagnosis) (1) Alcohol abuse Onset Date: 04/25/17 Current Visit: Yes Status: Chronic Plan: counselled monitor closely, out of the window period for DT on librium will continue. will taper dose continue multivitamin, thiamine and folate monitor electrolytes (2) Cholecystitis Onset Date: 05/05/17 Current Visit: Yes Status: Chronic Plan: s/p cholecystectomy ok to discharge from surgery point pain control anti emetics (3) Liver cirrhosis Onset Date: 08/04/17 Current Visit: Yes Status: Chronic Plan: monitor volume status avoid hepatotoxic meds Qualifiers: Hepatic cirrhosis type: alcoholic cirrhosis Ascites presence: with ascites Qualified Code(s): K70.31 - Alcoholic cirrhosis of liver with ascites (4) Weakness Current Visit: Yes Status: Acute Plan: MRI with mild stenosis Seen by PT, weak and in need of some more sessions, refusing placement d/c dilaudid pain control Physician Review: Patient Assessed, Agree with Above Assessment and Plan Time Spent Managing PTS Care (In Minutes): 25
[2017-08-07] MEDS: ENOXAPARIN 40 MG/0.4 ML SQ SCH (17:57)
[2017-08-08] MEDS: PIPER/TAZO/NS 3.375gm 3.375 GM/100 ML BAG IV SCH ×2 (00:47→08:38)
[2017-08-08] MEDS: HYDROCODONE/APAP 7.5/325 MG TAB PO PRN ×3 (00:48→09:01)
[2017-08-08] MEDS ORDERED: Magnesium Sulfate 2gm IVPB 2 G/50 ML BAG IV ONE (07:58)
[2017-08-08] MEDS: FOLIC ACID 1 MG, MULTIVITAMINS INJ 10 ML, THIAMINE HCL 100 MG in NA CHLORIDE 0.9% 1,000 ML IV SCH (08:37)
[2017-08-08] MEDS: CYANOCOBALAMIN 1,000 MCG TAB PO SCH (08:41)
[2017-08-08] MEDS: chlordiazePOXIDE HCl 5 MG CAP PO SCH (08:41)
[2017-08-08] MEDS: PANTOPRAZOLE 40 MG INJ IVP SCH (08:41)
[2017-08-08] MEDS: ASPIRIN EC 81 MG TAB PO SCH (08:41)
[2017-08-08] MEDS: DOCUSATE NA 100 MG CAP PO SCH (08:41)
[2017-08-08] MEDS: SODIUM CHLORIDE 0.9% 10ML INJ IV SCH (08:42)
[2017-08-08 11:46] VITALS: O2SAT 96
[2017-08-08 13:08] VITALS: BP 137/81; TEMP 99.3
== END 2017-08-08 14:10 | disposition home health service (06) | DRG 418 ==
LOC: ER 07:21 → ERHOLD 13:26 → 2ND 16:00
PROVIDERS: ADMIT Family Medicine; ATTEND Internal Medicine
PROC: 0DNU4ZZ Release Omentum, Percutaneous Endoscopic Approach (ICD-10-PCS; 2017-08-05)
PROC: 0FT44ZZ Resection of Gallbladder, Percutaneous Endoscopic Approach (ICD-10-PCS; principal; 2017-08-05 10:00)
DX: K80.12 Calculus of gallbladder with acute and chronic cholecystitis without obstruction (principal); E44.0 Moderate protein-calorie malnutrition; F10.231 Alcohol dependence with withdrawal delirium; N30.00 Acute cystitis without hematuria; E87.1 Hypo-osmolality and hyponatremia; J98.11 Atelectasis; K70.31 Alcoholic cirrhosis of liver with ascites; K66.0 Peritoneal adhesions (postprocedural) (postinfection); B96.20 Unspecified Escherichia coli [E. coli] as the cause of diseases classified elsewhere; E83.42 Hypomagnesemia; K21.9 Gastro-esophageal reflux disease without esophagitis; E86.0 Dehydration; M48.061 Spinal stenosis, lumbar region without neurogenic claudication; R53.1 Weakness; Z96.659 Presence of unspecified artificial knee joint; Z91.14 Patient's other noncompliance with medication regimen; Z68.23 Body mass index [BMI] 23.0-23.9, adult
CPT/HCPCS: 36415; 72158; 74177; 80048; 80053; 80076; 80320; 81003; 81015; 82140; 82150; 82248; 83690; 83735; 84100; 84132; 85025; 85610; 87077; 87086; 87088; 87186; 88304; 96374; 96375; 97163; 99285; A9577; C9113; J0744; J1170; J1650; J2175; J2250; J2270; J2370; J2405; J2543; J2710; J3010; J3411; J3475; J7030; Q9967